=== PATIENT | female | born 1980 | race Caucasian/White ===

== ENCOUNTER → 2016-06-01 | Outpatient (CLI) | payer BC ==
[~2016-06-01] MED LIST: OXYC-57 PO; PRENTAB26 PO; RIVA1TAB4 PO
[2016-06-01 12:02] LABS: GTGD 50 Grams
[2016-06-02 13:20] LABS: AFP CONCENTRATION 23.2 NG/ML; AFP MULTIPLE OF MEDIAN 0.71; AFPTS INSULIN DEP DIABETIC? NO; AFPTS MATERNAL WT 148 LBS; ALPHA-FETOPROTEIN RACE OTHER=O; HISTORY OF NTD NO; REPEAT SAMPLE? NO
== END | disposition home or self-care (01) ==
LOC: C.LAB1850 10:28
PROVIDERS: ATTEND Obstetrics & Gynecology
DX: O09.522 Supervision of elderly multigravida, second trimester (principal)

== ENCOUNTER → 2016-08-28 | Outpatient (CLI) | payer BC ==
[2016-08-28 17:00] LABS: URINE APPEARANCE CLEAR (CLEAR); URINE BILIRUBIN NEG (NEG); URINE COLOR YELLOW; URINE EPITHELIAL CELL AUTO >30 /lpf (0-5); URINE NITRITE NEG (NEG); URINE SPECIFIC GRAVITY 1.019 (1.000-1.030); UROBILINOGEN NEG (NEG)
[2016-08-28 17:01] LABS: MANUAL MICROSCOPIC REQUIRED? NO; REVIEW REQ? NO
== END ==
LOC: C.LABSPEC 16:03
PROVIDERS: ATTEND Obstetrics & Gynecology
DX: O09.523 Supervision of elderly multigravida, third trimester (principal); Z3A.00 Weeks of gestation of pregnancy not specified

== ENCOUNTER → 2016-08-28 | Outpatient (CLI) | payer BC ==
[2016-08-28 15:36] LABS: HEMATOCRIT 33.5 % (37-47)
[2016-08-28 19:09] LABS: GTGD 50 Grams
== END ==
LOC: C.LAB1850 14:02
PROVIDERS: ATTEND Obstetrics & Gynecology
DX: O09.523 Supervision of elderly multigravida, third trimester (principal); Z3A.00 Weeks of gestation of pregnancy not specified

== ENCOUNTER → 2016-10-22 | Outpatient (CLI) | payer BC | END | disposition home or self-care (01) | LOC: C.LABSPEC 14:36 | PROVIDERS: ATTEND Obstetrics & Gynecology | DX: O09.523 Supervision of elderly multigravida, third trimester (principal) ==

== ENCOUNTER 2016-11-13 05:27 | Inpatient (IN) | payer BC ==
--- NOTE | 2016-11-12 11:56 | PAT Medication Instructions ---
Service Date Nov 12, 2016. Current Home Medication List Multivit/Min/Iron/Fol Ac/Pren ( Vitamin), 2 TAB PO qam/noon Medication Instructions For Your Scheduled Surgery - Hold the following medications the morning of surgery: Multivit/Min/Iron/Fol Ac/Pren ( Vitamin), 2 TAB PO qam/noon If you have any questions please call us at [phone] or [phone] or [phone]
[2016-11-12 12:32] LABS: BASO % 0.3 %; BASO ABS # 0.02 K/uL (0-0.2); COMPLETE YES; EOS % 0.9 %; HEMATOCRIT 35.4 % (37-47); IG% 0.3 %; LYMPH % 27.3 %; LYMPH ABS # 1.82 K/uL (1.2-3.4); MEAN CELL VOLUME 86.6 fL (80-100); MEAN CORPUSCULAR HEMOGLOBIN 28.9 pg (25-34); MEAN CORPUSCULAR HGB CONC 33.3 g/dl (32-36); MONO % 10.4 %; NEUT % 60.8 %; PLATELET COUNT 278 K/uL (130-400); RED BLOOD COUNT 4.09 M/uL (4.2-5.4); WHITE BLOOD COUNT 6.66 K/uL (4.8-10.8)
--- NOTE | 2016-11-12 17:21 | History and Physical ---
History & Physical Date Nov 12, 2016. Chief Complaint Patient is a 36yowf who presents to labor and delivery at 39 4/7 weeks for repeat c/s. Her has been complicated by AMA with normal NSTs in the last several weeks. She had a low risk panorama screen and neg MSAFP. GBS is negative. Her first was an SAB in 2012. Her second was a c/s in [facility] for FTP. She desires repeat c/s. She declines TL. 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 History of Present Illness Past Medical/Surgical History Medical Problems: (1) Nausea and vomiting Surgical Problems: (1) History of delivery Additional History Hepatic Disease: No Endocrine Disorder: No Kidney Disease: No Hypertension: No Heart Disease: No Bleeding Tendencies: No Infectious Diseases: No Allergies Coded Allergies: No Known Allergies (Unverified , 11/12/16) Home Medications Scheduled Multivit/Min/Iron/Fol Ac/Pren ( Vitamin), 2 TAB PO qam/noon Physical Examination Skin: warm/dry Neck: supple Respiratory/Chest: lungs clear, normal breath sounds Cardiovascular: regular rate, rhythm Abdomen / GI: + pertinent finding (gravid fundus at 40cm) Neurologic/Psych: alert, oriented x 3 Diagnosis at 39 weeks Previous c/s--desires repeat. Plan of Treatment The r/b/se of repeat c/s discussed with the patient including bleeding, transfusion, poor wound healing, infection, blood clot/pe, urinary retention, damage to surrounding structures including bowel, bladder, vessels, nerves, ureters. Discussed need for further surgery , hospitalization or intervention. Discussed possible injury to baby. Discussed risk of heart attack, stoke, with any surgery. Questions were asked and answered. consent reviewed and signed.
[~2016-11-13] VITALS: Ht 182.9 cm; Wt 84.0 kg
[2016-11-13] VITALS (14 sets, daily range): BP systolic 89–97; BP diastolic 49–60; PULSE 55–63; TEMP 36.5–36.7; O2SAT 95–98; Ht 182.9 cm; Wt 84.0 kg
[~2016-11-13 05:27] MED LIST changes: -OXYC-57 PO; -RIVA1TAB4 PO
[2016-11-13] MEDS ORDERED: LACTATED RINGER'S 1000ML 1,000 ML IV SCH (05:32)
[2016-11-13] MEDS ORDERED: CITRIC ACID/SODIUM CITRATE 15 ML UDC PO STA (05:52)
[2016-11-13] MEDS ORDERED: CEFAZOLIN IV 2,000 MG in DEXTROSE 5% 50ML 50 ML IV SCH (06:00)
[2016-11-13] MEDS ORDERED: CEFAZOLIN 2000 MG/60 ML D5W 50 ML IV SCH (06:00)
[2016-11-13 06:31] LABS: BASO % 0.4 %; BASO ABS # 0.03 K/uL (0-0.2); COMPLETE YES; EOS % 1.3 %; HEMATOCRIT 33.2 % (37-47); IG% 0.3 %; LYMPH % 39.5 %; LYMPH ABS # 2.75 K/uL (1.2-3.4); MEAN CELL VOLUME 87.1 fL (80-100); MEAN CORPUSCULAR HEMOGLOBIN 27.8 pg (25-34); MEAN CORPUSCULAR HGB CONC 31.9 g/dl (32-36); MEAN PLATELET VOLUME 9.8 fL (7.4-10.4); MONO % 9.6 %; NEUT % 48.9 %; PLATELET COUNT 251 K/uL (130-400); RED BLOOD COUNT 3.81 M/uL (4.2-5.4); WHITE BLOOD COUNT 6.97 K/uL (4.8-10.8)
[2016-11-13] MEDS ORDERED: MoRPHine SULFATE PF 1 MG/ML 10 ML AMP/VIAL ONE (06:56)
[2016-11-13] MEDS ORDERED: OXYTOCIN INJ 10 UNITS/ML VIAL ONE ×2 (06:56→08:04)
[2016-11-13] MEDS ORDERED: FENTANYL CITRATE INJ 50 MCG/1 ML 2 ML VIAL ONE (06:56)
[2016-11-13] MEDS: LACTATED RINGER'S 1000ML 1,000 ML IV SCH ×2 (07:03→18:01)
--- NOTE | 2016-11-13 07:18 | History & Physical Bridge Note ---
H&P Re-Evaluation Bridge Note: I have examined the patient, reviewed the History & Physical and in the interval since the performance of the History & Physical I have noted the following changes of clinical significance: No changes noted
[2016-11-13] MEDS ORDERED: EpHEDrine SULFATE 50MG/5ML SYR ONE (07:53)
[2016-11-13] MEDS ORDERED: PHENYLEPHRINE 100MCG/ML 5ML SYR ONE (07:53)
[2016-11-13] MEDS ORDERED: CARBOPROST TROMETHAMINE 250 MCG/ML AMP INJ ONE (08:04)
[2016-11-13] MEDS ORDERED: CARBOPROST TROMETHAMINE 250 MCG/ML AMP ONE (08:06)
[2016-11-13] MEDS ORDERED: BENZOCAINE 20% AER SPR 82.5 GM CAN EXT PRN (08:45)
[2016-11-13] MEDS ORDERED: HYDROCORTISONE ACETATE 25 MG SUPP PR PRN (08:45)
[2016-11-13] MEDS ORDERED: SENNA 8.6 MG TAB PO PRN (08:45)
[2016-11-13] MEDS ORDERED: SUPERCREAM 0.870 % 15GM JAR EXT PRN (08:45)
[2016-11-13] MEDS ORDERED: LANOLIN OINT EXT PRN ×2 (08:45)
[2016-11-13] MEDS ORDERED: MAGNESIUM HYDROXIDE SUSP 30 ML UDC PO PRN (08:45)
[2016-11-13] MEDS ORDERED: FENTANYL CITRATE INJ 50 MCG/1 ML 2 ML VIAL IV PRN (09:00)
[2016-11-13] MEDS ORDERED: OXYTOCIN INJ 20 UNITS in LACTATED RINGER'S 1000ML 1,000 ML IV SCH (09:00)
[2016-11-13] MEDS ORDERED: EpHEDrine SULFATE INJ 50 MG/ML AMP IV PRN ×2 (09:00→09:15)
[2016-11-13] MEDS ORDERED: ATROPINE SULFATE 0.1 MG/ML 5ML SYR IV PRN (09:00)
[2016-11-13] MEDS ORDERED: ONDANSETRON INJ 2 MG/ML 2 ML VIAL IV PRN ×2 (09:00→09:15)
[2016-11-13] MEDS: SIMETHICONE 80 MG CHEW PO SCH ×4 (09:00→20:52)
[2016-11-13] MEDS ORDERED: NALOXONE HCL INJ 1 MG in SODIUM CHLORIDE 0.9% 1000ML 1,000 ML IV PRN (09:02)
[2016-11-13] MEDS ORDERED: LACTATED RINGER'S 1000ML 500 ML IV PRN (09:02)
[2016-11-13] MEDS ORDERED: NALOXONE HCL INJ 0.08 MG in SYRINGE 1.8 ML IV PRN (09:02)
[2016-11-13] MEDS ORDERED: SODIUM CHLORIDE 0.9% 1000ML 1,000 ML IV PRN (09:02)
--- NOTE | 2016-11-13 09:02 | Medical Student: [facility] ---
Operative Report Operative Date Nov 13, 2016. Pre-Operative Diagnosis 39 4/7 wk intrauterine , prior C section, desires repeat C section Post-Operative Diagnosis Same Procedure(s) Performed repeat low transverse C section Surgeon Dr. Calvin Flatcar Whacker Surgeon(s) Dr. Perez Estimated Blood Loss 600mL Findings Viable female infant apgars 8/9, weights 8 lbs 1 oz. Normal uterus, tubes, ovaries bilaterally Fluids (cc crystalloids) 1L Lactated ringers Specimens Placenta, cord blood Drains Adames catheter Anesthesia Spinal Complication(s) None Disposition L&D
--- NOTE | 2016-11-13 09:07 | Anesthesiology Progress Note ---
Anesthesia Post Op Note Date & Time Nov 13, 2016 at 09:06 Notes Mental Status: alert / awake / arousable, participated in evaluation Pt Amnestic to Procedure: Yes Nausea / Vomiting: adequately controlled Pain: adequately controlled Airway Patency, RR, SpO2: stable & adequate BP & HR: stable & adequate Hydration State: stable & adequate Neuraxial Anesthesia: was administered, sensory block is resolving Anesthetic Complications: no major complications apparent
--- NOTE | 2016-11-13 09:10 | [facility] Operative Report ---
Operative Report Operative Date Nov 13, 2016. Pre-Operative Diagnosis Previous Caesarean Section; Desires Repeat Caesarean Section. Post-Operative Diagnosis Same as Pre-op Procedure(s) Performed Live Female at [address] Calvin Senior Grants Officer Surgeon(s) Dr. Perez Estimated Blood Loss 700 Findings viable female delivered by vacuum assist. nl utx/tubes/ovs. right broad ligament hematoma Fluids 1800cc Specimens Placenta (Hold) Cord Blood Drains vazquez Anesthesia spinal Complication(s) None Disposition L&D Indications with iup at 39 weeks, hx of previous c/s, desires repeat. Description of Procedure Patient was taken to the operating room where she was identified verbally and by bracelet. She was seated on the operating where a spinal anesthetic was placed. she was then placed in the dorsal lithotomy position, left tilt, vazquez placed. She was prepped and draped normally. The anesthetic was tested and found to be adequate. Time out held. A knife was used to remove the old scar. Bleeding of the sub-q attended with bovie cautery. The knife was used to incise the fascia and it was carried out laterally with scissors. The anterior edge of the incision was grasped elevated and the underlying layer of fascia removed with scissors. This was repeated on the inferior edge. The peritoneum was grasped with snaps and entered sharply with scissors. Then it was taken superiorly and inferiorly with good visualization of the bladder. The bladder blade was placed. The vesicouterine peritoneum was grasped, entered with scissors and taken out laterally. The bladder flap was created digitally. The hysterotomy incision was scored with the knife, entered with a snap and stretched with the operators fingers. We had difficulty delivering the head through the incision, so the incision was opened further with bandage scissors. The with the assistance of a vacuum. Pop-off x 2. There was no nuchal cord. Rest of the baby then delivered with fundal pressure. NOse and mouth suctioned and immediate cry. Cord clamped and cut and handed off to the awaiting peds. Cord blood and segment obtained. Placenta was manually extracted. The uterus was cleared of all clot and debris with moistened sponges. The uterus was exteriorized. The edges of the incision were grasped with T clamps. The incision was repaired with 2 layers of 0 Vicryl suture. A right broad ligament hematoma was noted when the last stitch of the second layer was performed. This was closely observed for over 10 minutes. I even called Dr. Balbuena in to evaluate. After the first five minutes, the hematoma remained stable and the decision was made to reinteriorize the uterus. The hematoma was again inspected for several minutes in situ and was stable. A figure of eight suture was needed in the incision for hemostasis. The rectus muscles were reapproximated with 0 Vicryl. The fascia was closed with 0 Vicryl starting at the edges and meeting in the middle. The sub-Q tissue was reapproximated with 3 horizontal mattress sutures. The skin was then reapproximated with 4-0 Vicryl. All sponge, lap and needle counts were correct times two. Mother and baby doing well at the end of the delivery. I attest to the content of the Intraoperative Record and any orders documented therein. Any exceptions are noted below.
[2016-11-13] MEDS ORDERED: MEPERIDINE HCL 25 MG/ML CARP IV PRN (09:15)
[2016-11-13] MEDS ORDERED: NO NARCOTICS OR SEDATIVES SCH (09:15)
[2016-11-13] MEDS ORDERED: NALBUPHINE HCL INJ 10 MG/ML AMP IV PRN (09:15)
[2016-11-13] MEDS ORDERED: DiphenhydrAMINE HCL 50 MG/ML VIAL IV PRN (09:15)
[2016-11-13] MEDS ORDERED: MoRPHine SULFATE PF 1 MG/ML 10 ML AMP/VIAL EPI PRN (09:15)
[2016-11-13] MEDS ORDERED: NALOXONE HCL 0.4 MG/1 ML VIAL/CARP IV PRN (09:15)
--- NOTE | 2016-11-13 10:25 | Medical Student: [facility] ---
Med Student History & Physical Date of Service Nov 13, 2016. Chief Complaint Previous Section, desires repeat C section History of Present Illness Source: clinic records, hospital records, other Patient is a 36 yr old at 39 4/7 weeks gestation ADRIAN 11/16/16 (via LMP) complicated by advanced maternal age with history of prior C section. presenting for repeat section. She recieved weekly NSTs from 36 weeks all of which were reactive. She is Blood type A+, GBS negative, and rubella immune. She had a low risk panorama screen and a negative MSAFP. She took vitamins and DHA complete capsules during the . She had nausea in the first trimester. OB History 36 yr old : G1: 2012, spontaneously aborted G2: 11/22/13, a 8lb 0 oz. 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 No infection history of herpes, GBS, hepatitis B/C, gonorrhea, chlamydia, HPV, HIV, Syphilis, or other STI. Past Surgical History Prior delivery Social History Smoking Status: Never Smoker Smokeless Tobacco Use: No Alcohol Use: none Drug Use: none Marital Status: Housing status: lives with family, lives with significant other Occupational Status: employed Allergies Coded Allergies: No Known Allergies (Unverified , 11/12/16) Home Medications Multivit/Min/Iron/Fol Ac/Pren ( Vitamin), 2 TAB PO qam/noon Oxycodone/Acetaminophen 5MG/325MG (Percocet 5MG/325MG), 1-2 TABLETS PO Q6 PRN for Pain Review of Systems Constitutional: No fever, No chills, No sweats, No weight loss Eyes: No worsening of vision ENT: No hearing loss, No sore throat Respiratory: No cough, No shortness of breath, No dyspnea on exertion, No hemoptysis Cardiovascular: No chest pain, No edema, No palpitations Abdomen: + nausea (in first trimester), No pain, No diarrhea Musculoskeletal: No joint pain, No muscle pain Genitourinary - Female: + , No dysuria Neurologic: No memory loss, No numbness/tingling Psychiatric: No depression symptoms Endocrine: No fatigue Hematologic / Lymphatic: No abnormal bleeding/bruising, No swollen lymph nodes , No night sweats Integumentary: No rash Allergic / Immunologic: No environmental allergies Physical Exam Vital Signs: Temp 36.4, Pulse 62, RR 20, BP 95/54, Pulse ox 98 on room air General Appearance: WD/WN Head: normocephalic Eyes: normal inspection ENT: normal ENT inspection Neck: thyroid normal Respiratory/Chest: chest non-tender, lungs clear Cardiovascular: regular rate, rhythm Abdomen / GI: normal bowel sounds Fundal Height: term Genitourinary - Female: external genitalia normal Back: normal inspection Extremities: normal inspection Neurologic/Psych: alert Skin: normal color Lymphatic: no adenopathy Heart: Regular rate, rhythm Lungs: Clear bilaterally Abdomen: Soft, non-tender, gravid uterus Extremities: No pedal edema, no calf tenderness on palpation : Cervix exam on admission, Dil. Eff. Station results pending Monitoring External Monitor: within normal range Tocodynamometer: within normal range Laboratory Results 11/13/16 06:14 Red Blood Count 3.81, Mean Corpuscular Volume 87.1, Mean Corpuscular Hemoglobin 27.8, Mean Corpuscular Hemoglobin Concent 31.9, Mean Platelet Volume 9.8, Neutrophils (%) (Auto) 48.9, Lymphocytes (%) (Auto) 39.5, Monocytes (%) (Auto) 9.6, Eosinophils (%) (Auto) 1.3, Basophils (%) (Auto) 0.4, Neutrophils # (Auto) 3.41, Lymphocytes # (Auto) 2.75, Monocytes # (Auto) 0.67, Eosinophils # (Auto) 0.09, Basophils # (Auto) 0.03 Test 11/13/16 06:14 White Blood Count 6.97 K/uL (4.8-10.8) Red Blood Count 3.81 M/uL (4.2-5.4) Hemoglobin 10.6 g/dL (12.0-16.0) Hematocrit 33.2 % (37-47) Mean Corpuscular Volume 87.1 fL (80-100) Mean Corpuscular Hemoglobin 27.8 pg (25-34) Mean Corpuscular Hemoglobin Concent 31.9 g/dl (32-36) Platelet Count 251 K/uL (130-400) Mean Platelet Volume 9.8 fL (7.4-10.4) Neutrophils (%) (Auto) 48.9 % Lymphocytes (%) (Auto) 39.5 % Monocytes (%) (Auto) 9.6 % Eosinophils (%) (Auto) 1.3 % Basophils (%) (Auto) 0.4 % Neutrophils # (Auto) 3.41 K/uL (1.4-6.5) Lymphocytes # (Auto) 2.75 K/uL (1.2-3.4) Monocytes # (Auto) 0.67 K/uL (0.11-0.59) Eosinophils # (Auto) 0.09 K/uL (0-0.5) Basophils # (Auto) 0.03 K/uL (0-0.2) RDW Standard Deviation 45.9 fL (36.4-46.3) RDW Coefficient of Variation 14.4 % (11.5-14.5) Immature Granulocyte % (Auto) 0.3 % Immature Granulocyte # (Auto) 0.02 K/uL (0.00-0.02) Assessment and Plan Assessment:36 yr old at 39 4/7 weeks gestation ADRIAN 11/16/16 complicated by advanced maternal age with history of prior C section. tracing category 1. Plan: planned repeat section
[2016-11-13] MEDS: KETOROLAC TROMETHAMINE 30 MG/ML VIAL IV. PRN ×2 (11:32→20:05)
[2016-11-13 12:42] LABS: HEMATOCRIT 31.9 % (37-47)
[2016-11-13] MEDS: DOCUSATE SODIUM 100 MG CAP PO SCH (20:52)
[2016-11-14] VITALS: O2SAT 96
[2016-11-14 01:00] VITALS: O2SAT 98
[2016-11-14 01:30] VITALS: O2SAT 98
[2016-11-14] MEDS ORDERED: KETOROLAC TROMETHAMINE 30 MG/ML VIAL IV. PRN (01:30)
[2016-11-14] MEDS ORDERED: DC INTRASPINAL MORPHINE SCH (01:30)
[2016-11-14] MEDS ORDERED: ONDANSETRON INJ 2 MG/ML 2 ML VIAL IV PRN (01:30)
[2016-11-14] MEDS ORDERED: DiphenhydrAMINE HCL 50 MG/ML VIAL IV PRN (01:30)
[2016-11-14] MEDS ORDERED: PROMETHAZINE HCL INJ 25 MG in SODIUM CHLORIDE 0.9% 50ML 50 ML IV PRN (01:30)
[2016-11-14] MEDS ORDERED: OXYCODONE/ACETAMINOPHEN 5-325 TAB PO PRN (01:30)
[2016-11-14 03:30] VITALS: BP 82/45; PULSE 58; TEMP 36.6; O2SAT 97
[2016-11-14 04:13] LABS: HEMATOCRIT 30.5 % (37-47)
[2016-11-14 06:08] LABS: BASO % 0.3 %; BASO ABS # 0.02 K/uL (0-0.2); COMPLETE YES; EOS % 1.4 %; HEMATOCRIT 31.3 % (37-47); IG% 0.3 %; LYMPH % 19.7 %; MEAN CELL VOLUME 87.7 fL (80-100); MEAN CORPUSCULAR HEMOGLOBIN 26.9 pg (25-34); MEAN CORPUSCULAR HGB CONC 30.7 g/dl (32-36); MEAN PLATELET VOLUME 9.2 fL (7.4-10.4); NEUT % 69.3 %; PLATELET COUNT 218 K/uL (130-400); RED BLOOD COUNT 3.57 M/uL (4.2-5.4); WHITE BLOOD COUNT 7.09 K/uL (4.8-10.8)
--- NOTE | 2016-11-14 06:21 | OB/GYN Progress Note ---
POLL CLERK Progress Note Date of Service Nov 14, 2016. Subjective conversation w/ patient, physical exam, chart review, lab review Ambulation: limited ambulation (not up ambulating yet) Passing Gas: Yes Diet Tolerance: Clear Liquids Lochia: Moderate Feeding Type: Breast Feeding Pain: Denies any pain, says occasional low abdomen soreness. Notes: Adames out early this AM. Pt states she's drinking fluids before trying to urinate. Review of Systems Constitutional: No fever, No chills Respiratory: No cough, No shortness of breath Cardiac: No chest pain Abdomen: + nausea, + vomiting (Two episodes emesis yest afternoon. Overnight no N/V and tolerating PO fluids. ), No diarrhea Objective Vital Signs Date Time Temp Pulse Resp B/P (MAP) Pulse Ox O2 Delivery O2 Flow Rate FiO2 11/14/16 03:30 36.6 58 16 82/45 (57) 97 Room Air 11/14/16 01:30 20 98 11/14/16 01:00 16 98 11/14/16 00:00 18 96 11/13/16 23:50 36.5 55 18 89/49 (62) 96 Room Air 11/13/16 23:50 96 Room Air 11/13/16 23:00 16 98 11/13/16 22:00 16 95 11/13/16 21:00 18 96 11/13/16 20:10 36.7 57 18 97/60 (72) 95 Room Air 11/13/16 20:00 18 95 11/13/16 19:10 16 98 11/13/16 18:00 16 97 11/13/16 17:05 18 98 11/13/16 16:05 18 96 11/13/16 15:55 98 Room Air 11/13/16 15:55 36.5 63 16 95/57 (70) 98 Room Air 11/13/16 15:05 16 98 11/13/16 14:05 20 98 11/13/16 13:05 98 Room Air 11/13/16 13:05 Room Air 11/13/16 13:05 20 98 Physical Exam General Appearance: WELL-APPEARING (Smiling, easily conversant.), WD/WN, NO APPARENT DISTRESS Respiratory/Chest: lungs clear, normal breath sounds Cardiovascular: no murmur, + bradycardia (regular) Abdomen: normal bowel sounds, non tender, + tenderness (mild generalized low abd ttp) Fundus: Firm, Tender, Relation to Umbilicus (at umbilicus) Incision Description: Clean, Dry & Intact (bandage still in place) Extremities: normal range of motion, non-tender, no pedal edema, no calf tenderness Laboratory Results Last 24 Hours Test 11/13/16 12:33 11/14/16 04:08 11/14/16 05:53 Hemoglobin 10.5 g/dL 9.4 g/dL 9.6 g/dL Hematocrit 31.9 % 30.5 % 31.3 % White Blood Count 7.09 K/uL Red Blood Count 3.57 M/uL Mean Corpuscular Volume 87.7 fL Mean Corpuscular Hemoglobin 26.9 pg Mean Corpuscular Hemoglobin Concent 30.7 g/dl Platelet Count 218 K/uL Mean Platelet Volume 9.2 fL Neutrophils (%) (Auto) 69.3 % Lymphocytes (%) (Auto) 19.7 % Monocytes (%) (Auto) 9.0 % Eosinophils (%) (Auto) 1.4 % Basophils (%) (Auto) 0.3 % Neutrophils # (Auto) 4.91 K/uL Lymphocytes # (Auto) 1.40 K/uL Monocytes # (Auto) 0.64 K/uL Eosinophils # (Auto) 0.10 K/uL Basophils # (Auto) 0.02 K/uL RDW Standard Deviation 46.3 fL RDW Coefficient of Variation 14.6 % Immature Granulocyte % (Auto) 0.3 % Immature Granulocyte # (Auto) 0.02 K/uL Assessment and Plan Post-Op Day Number: 1 Continue Routine Care: 36yo s/p repeat , now PPD#1. - Blood type A pos. GBS negative. Rubella immune. - Vital signs noted, some hypotension and bradycardia overnight. Pt presently not dizzy, no gross neuro sx. - Adames urine yest noted pink-tinged. Adames out overnight, pending void this AM. - S/p spinal anesthesia. No PO pain meds yet. Pt denies current pain. - No leg swelling or tenderness on calf palpation. Encourage ambulation. SCD' s in place. - Encourage breast feeding. - Hemoglobin: 10.6 preop --> 10.5, 9.4, 9.6 postop. RN states vaginal bleeding moderate. Continue to monitor clinically. - Continue routine post delivery care. Will discuss vitals and urine on morning rounds. - Pt agreed with above plan, all current questions answered. Yony Perez MD, PGY1 Clinical Application Consultant Physician Supervision Note: I interviewed and examined the patient. Discussed with [Name of resident] and agree with findings and plan as documented in the note. Any exceptions or clarifications are listed here: [None] Documented By: Kaylynn Monk Resident Tracking Resident Involvement: Resident Care Provided Care Provided: OB Delivery (morning rounds)
[2016-11-14 08:31] VITALS: BP 100/60; PULSE 60; TEMP 36.7; O2SAT 99
[2016-11-14] MEDS: PRENATAL VITAMIN TAB PO SCH (08:37)
[2016-11-14] MEDS: DOCUSATE SODIUM 100 MG CAP PO SCH ×2 (08:37→20:00)
[2016-11-14] MEDS: FERROUS SULFATE 325 MG TAB PO SCH (08:37)
[2016-11-14] MEDS: SIMETHICONE 80 MG CHEW PO SCH ×4 (08:38→20:00)
[2016-11-14] MEDS: OXYCODONE/ACETAMINOPHEN 5-325 TAB PO PRN ×2 (08:38→18:48)
[2016-11-14] MEDS: IBUPROFEN 600 MG TAB PO PRN ×2 (08:39→18:48)
[2016-11-14] MEDS ORDERED: DIPHTHERIA/TETANUS/PERTUSSIS 0.5 ML SYR/VIAL IM. ONE (09:00)
[2016-11-14] MEDS ORDERED: BISACODYL 5 MG TABEC PO ONE (22:00)
[2016-11-14 23:30] VITALS: BP 95/54; PULSE 62; TEMP 36.4; O2SAT 98
[2016-11-15] MEDS: IBUPROFEN 600 MG TAB PO PRN ×4 (03:30→17:45)
[2016-11-15] MEDS: OXYCODONE/ACETAMINOPHEN 5-325 TAB PO PRN ×4 (03:31→20:29)
[2016-11-15 07:22] LABS: HEMATOCRIT 29.7 % (37-47)
[2016-11-15 08:20] VITALS: BP 95/58; PULSE 96; TEMP 36.5
[2016-11-15] MEDS: SIMETHICONE 80 MG CHEW PO SCH ×4 (08:34→20:29)
[2016-11-15] MEDS: FERROUS SULFATE 325 MG TAB PO SCH (08:34)
[2016-11-15] MEDS: DOCUSATE SODIUM 100 MG CAP PO SCH ×2 (08:34→20:29)
[2016-11-15] MEDS: PRENATAL VITAMIN TAB PO SCH (08:34)
[2016-11-15] MEDS ORDERED: BISACODYL 10 MG SUPP PR PRN (08:45)
--- NOTE | 2016-11-15 08:56 | Progress Note ---
Subjective Nov 15, 2016. Subjective conversation w/ patient, physical exam, lab review Ambulation: ambulating normally Voiding: no voiding problems Passing Gas: Yes Diet Tolerance: Regular Diet Lochia: Small Feeding Type: Breast Feeding Pain: controlled with oral pain meds Objective Vital Signs Date Time Temp Pulse Resp B/P (MAP) Pulse Ox O2 Delivery O2 Flow Rate FiO2 11/14/16 23:30 36.4 62 20 95/54 (68) 98 Room Air 11/14/16 23:30 98 Room Air 11/14/16 15:20 Room Air Physical Exam General Appearance: WELL-APPEARING, WD/WN, NO APPARENT DISTRESS Respiratory/Chest: lungs clear, normal breath sounds Cardiovascular: regular rate, rhythm Abdomen: non tender, soft Fundus: Firm, Non-Tender, Relation to Umbilicus (at u) Incision Description: Clean, Dry & Intact Extremities: non-tender, normal inspection Laboratory Results Last 24 Hours Test 11/15/16 07:11 Hemoglobin 9.5 g/dL Hematocrit 29.7 % Assessment and Plan Problem List Medical Problems: (1) Hypotension Status: Acute Post-Op Day#: 2 Continue Routine Care: Patient doing well. Routine care. Wants to see how it goes today with ambulation and shower. May want d/c tonight, may stay.
[2016-11-15] MEDS ORDERED: OXYC-57 PO (09:07)
--- NOTE | 2016-11-15 09:08 | Discharge Instructions ---
Discharge Instructions Date of Service Nov 15, 2016. Admission Reason for Admission: Previous Section Discharge Discharge Diagnosis / Problem: s/p repeat Discharge Goals Goal(s): Routine recovery after Activity Recommendations Activity Limitations: per Instructions/Follow-up section . Instructions / Follow-Up Instructions / Follow-Up ACTIVITY RECOMMENDATIONS: * Gradual return to full activity over the next 2-3 weeks. * No lifting - nothing heavier than baby over the next 2-3 weeks. * Do not engage in vigorous exercise, sexual activity or sports until cleared by your physician. * Do not drive or operate any motorized equipment until cleared by your physician. * You may shower/bathe daily. MEDICATIONS: For discomfort or pain, you may use Acetaminophen (Tylenol), Ibuprofen (Advil), or Naproxen (Aleve) following the package directions. For constipation you may use Colace following the package directions. BREAST CARE: If you are not breast feeding: * Wear a supportive bra 24 hours a day for one to two weeks. * Avoid stimulating your breasts and nipples as much as possible during the first few weeks after delivery. * When taking a shower, have the warm water hit your back, not breasts. * When your breasts feel full, apply ice packs. Usually three to four times a day helps ease the discomfort. * Take a mild pain medication (Tylenol / Motrin) when you are uncomfortable. If breast feeding: * Use breast milk to lubricate nipples. Lansinoh cream may be used for sore nipples. You do not need to remove cream prior to breast feeding. If using a different brand of cream, check the label for directions regarding removal of cream prior to nursing. * Wear a supportive bra. * If having problems with breasts or breast feeding, call a consultant intern or your health care provider. SPECIAL CARE INSTRUCTIONS: When you are discharged from the hospital, it is important for you to follow the instructions listed below: * During the first week at home, you should be able to care for yourself and your baby. In addition, the usual light household activities are encouraged. * Limit your activities to the way you feel. Do not try to clean the house or move furniture. Be sensible. * If you actively engage in sports and have done so up until the time of your delivery, you may resume these activities as soon as you feel able. This may take up to one month or even longer. Use good judgment. * Continue to take your vitamins for at least six weeks after the of your baby. * Your diet need not be limited unless you were on a special diet before your delivery. Breast-feeding mothers need around 2500 calories per day and at least 64-80 ounces of fluid per day (8 to 10 glasses). * You should eat foods from the four major food groups. Crash diets or fad diets are to be avoided. Eating lean meats, fresh fruits and vegetables, low-fat dairy products, high fiber foods and a regular exercise program, will help you get back to your pre- weight without putting your health at risk. * Constipation is sometimes a problem after delivery. Take a mild laxative as needed. If breast feeding, Milk of Magnesia is acceptable to use. You may use a suppository or Fleets enema. * A daily shower or tub bath is suggested. Wash incision daily with warm soapy water and pat dry. It doesn't need to be covered unless drainage is present. * A bloody vaginal discharge will usually continue until around four weeks . A small amount of bleeding may continue for as long as six weeks. Vaginal discharge changes from the bright red bleeding after delivery to pink then brownish and finally yellowish-pink before becoming white and disappearing. * Bleeding may increase with activity. Your first period may come in 4-8 weeks. If you are breast feeding, your period may be delayed even longer. * Funkley (sex) can begin whenever both you and your partner feel comfortable and do not have any form of genital infection. It is recommended that you wait at least six weeks for internal and external healing to occur. If you have questions, please talk to your health care practitioner. A condom should be used to prevent infection and . * Foreplay, gentle intercourse and lubrication is very important the first several times to prevent pain. A water-based lubricant such as K-Y jelly or Astroglide may be used. * If you have RH negative blood and your baby is RH positive, you will receive RHOGAM by injection prior to discharge. The nurse will give you a card to keep with you that has the date and place that you received RHOGAM after delivery. * During your care, you had a Rubella screen done to check for the presence of rubella antibodies in your blood. If your test was negative, you will receive a Rubella vaccine prior to discharge. This vaccine may cause a fever, soreness at the injection site and flu-like symptoms. If these symptoms persist, notify your health care practitioner. is not advised for one month after a Rubella vaccine. * Verbalizes understanding of car seat law as reviewed with patient nursing. * Car Seat hand-out given and reviewed with patient by nursing. * Shaken baby information reviewed with patient by nursing. Call you doctor if: * Heavy bleeding (saturating several pads an hour) or passing clots the size of your fist. * A fever >101 degrees F (38.3 degrees C) on two occasions four hours apart and /or chills. * Unusual pain in the pelvic or vaginal areas. * Call the doctor for any increased redness, drainage or swelling around the incision and any pain unrelieved by prescribed pain medication. * "Baby Blues" lasting longer than two weeks. If you have any questions or concerns, call your health care practitioner at . FOLLOW UP VISIT: * Please call the office at to schedule a 6 week examination. It is important you keep this appointment. It is important for you to make arrangements for either yearly or twice yearly check-ups thereafter. Current Hospital Diet Patient's current hospital diet: Regular OB Diet Discharge Diet Recommended Diet: Regular Diet Procedures Procedures Performed: Live Female Infant at 0801 Pending Studies Studies pending at discharge: no Medical Emergencies . Who to Call and When: Medical Emergencies: If at any time you feel your situation is an emergency, please call [phone] immediately. . Non-Emergent Contact Non-Emergency issues call your: Security System Technician . . "Provider Documentation" section prepared by Qiana Calvin. . VTE Core Measure Inpt VTE Proph given/why not?: Treatment not indicated [place] Drug Monitoring Program Search Results: no issues identified
[2016-11-15 15:30] VITALS: BP 92/53; PULSE 56; TEMP 36.6
[2016-11-15] MEDS ORDERED: HYDROCORTISONE 1% OINT 30 GM TUBE EXT PRN (16:00)
[2016-11-15 23:50] VITALS: BP 95/56; PULSE 82; TEMP 36.8
[2016-11-16] MEDS: IBUPROFEN 600 MG TAB PO PRN (03:12)
[2016-11-16] MEDS: OXYCODONE/ACETAMINOPHEN 5-325 TAB PO PRN (05:15)
--- NOTE | 2016-11-16 06:44 | OB/GYN Progress Note ---
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 Subjective conversation w/ patient, physical exam, chart review, lab review Ambulation: ambulating normally Voiding: no voiding problems Passing Gas: Yes Diet Tolerance: Regular Diet Lochia: Small Feeding Type: Breast Feeding Notes: Says had some right low abd tenderness overnight, resolved this morning. Review of Systems Constitutional: No fever, No chills Respiratory: No cough, No shortness of breath Cardiac: No chest pain Abdomen: No nausea, No diarrhea Female : No dysuria Objective Vital Signs Date Time Temp Pulse Resp B/P (MAP) Pulse Ox O2 Delivery O2 Flow Rate FiO2 11/15/16 23:50 36.8 82 16 95/56 (69) Room Air 11/15/16 23:50 Room Air 11/15/16 15:30 36.6 56 20 92/53 (66) Room Air 11/15/16 15:30 Room Air 11/15/16 08:20 Room Air 11/15/16 08:20 36.5 96 18 95/58 (70) Physical Exam General Appearance: WELL-APPEARING, WD/WN, NO APPARENT DISTRESS Respiratory/Chest: lungs clear, normal breath sounds Cardiovascular: regular rate, rhythm Abdomen: normal bowel sounds, soft (non-distended, non-tender to percussion), + tenderness (mild generalized low abd ttp, including over some contusion in RLQ ) Fundus: Firm, Tender (very mild ttp), Relation to Umbilicus (at umbilicus) Incision Description: Clean, Dry & Intact (no erythema or d/c, steristrips in place) Extremities: normal range of motion, non-tender, no pedal edema, no calf tenderness Laboratory Results Last 24 Hours Test 11/15/16 07:11 Hemoglobin 9.5 g/dL Hematocrit 29.7 % Assessment and Plan Post-Op Day Number: 3 Continue Routine Care: 36yo s/p scheduled repeat , now PPD #3. - A pos. GBS negative. Rubella immune. - Vital signs reviewed and stable. Ongoing relative hypotension without gross neuro symptoms. - Pain controlled with motrin and Percocet. - No leg swelling or tenderness on calf palpation. Encourage ambulation. - Encourage breast feeding. - Hemoglobin preop 10.6, post-delivery around 9.5. Continue to monitor clinically. - Continue routine post delivery care. - Pt agreed with above plan, all current questions answered. Yony Perez MD, PGY1 Weight Yardage Checker Physician Supervision Note: I interviewed and examined the patient. Discussed with Dr. Perez and agree with findings and plan as documented in the note. Any exceptions or clarifications are listed here: Doing well. Blistering from the tape improving. Uterus tenderness, consistent with post-op. Plan d/c today. May room in. Documented By: Qiana Calvin Resident Tracking Resident Involvement: Resident Care Provided Care Provided: OB Delivery (morning rounds)
[2016-11-16] MEDS: SIMETHICONE 80 MG CHEW PO SCH (08:23)
[2016-11-16] MEDS: FERROUS SULFATE 325 MG TAB PO SCH (08:24)
[2016-11-16] MEDS: DOCUSATE SODIUM 100 MG CAP PO SCH (08:24)
[2016-11-16] MEDS: PRENATAL VITAMIN TAB PO SCH (08:24)
[2016-11-16 08:30] VITALS: BP 102/62; PULSE 66; TEMP 36.4
[2016-11-16 10:00] VITALS: BP_DIAS 62; PULSE 66; TEMP 36.4
== END 2016-11-16 10:30 | disposition home or self-care (01) | DRG 765 ==
LOC: C.LD 05:27 → EDSTATUS 07:21 → C.OBG 13:04
PROVIDERS: ADMIT Obstetrics & Gynecology; ATTEND Obstetrics & Gynecology
PROC: 10D00Z1 Extraction of Products of Conception, Low, Open Approach (ICD-10-PCS; principal; 2016-11-13 07:30)
DX: O34.219 Maternal care for unspecified type scar from previous cesarean delivery (principal); O09.523 Supervision of elderly multigravida, third trimester; O26.53 Maternal hypotension syndrome, third trimester; Z37.0 Single live birth; Z3A.39 39 weeks gestation of pregnancy

== ENCOUNTER → 2016-12-29 | Outpatient (CLI) | payer BC ==
[~2016-12-29] MED LIST changes: +OXYC-57 PO
== END | disposition home or self-care (01) ==
LOC: C.PAPS 08:54
PROVIDERS: ATTEND Obstetrics & Gynecology
DX: Z01.419 Encounter for gynecological examination (general) (routine) without abnormal findings (principal)